=== PATIENT | male | born 1990 | race African-American/Black ===

== ENCOUNTER 2019-12-07 23:35 | Emergency (ER) | payer SELFPAY ==
[~2019-12-07] VITALS: Ht 175.3 cm; Wt 89.8 kg
[2019-12-08 01:33] VITALS: BP 124/71
== END 2019-12-08 02:28 | disposition home or self-care (01) ==
LOC: ER 23:47
DX: S83.92XA Sprain of unspecified site of left knee, initial encounter (principal); S89.82XA Other specified injuries of left lower leg, initial encounter; X50.9XXA Other and unspecified overexertion or strenuous movements or postures, initial encounter; Y93.89 Activity, other specified; Y92.89 Other specified places as the place of occurrence of the external cause; Y99.8 Other external cause status
CPT/HCPCS: 73562